=== PATIENT | female | born 1975 | race African-American/Black ===

== ENCOUNTER 2017-08-29 19:54 | Emergency (ER) | payer SELFPAY ==
[2017-08-29] MEDS ORDERED: Mag-Al 1200 mg/1200 mg/30 ML UDCUP ONE (20:21)
[2017-08-29] MEDS ORDERED: Lidocaine Viscous Sol 2% 15 ml UD Cup ONE (20:21)
--- NOTE | 2017-08-29 21:22 | RAD ---
RADIOGRAPH CHEST 1 VIEW: HISTORY: A 42-year-old female with chest pain. FINDINGS: There are no air space densities, pulmonary edema, pneumothorax, or cardiomegaly. The lateral costop hrenic angles are sharp. IMPRESSION: No acute cardiopulmonary findings. jn [] POS: [facility]
== END 2017-08-29 20:40 | disposition home or self-care (01) ==
LOC: ERS 19:54
DX: S00.03XA Contusion of scalp, initial encounter (principal); R07.89 Other chest pain; D64.9 Anemia, unspecified; F41.9 Anxiety disorder, unspecified; F32.9 Major depressive disorder, single episode, unspecified; W22.8XXA Striking against or struck by other objects, initial encounter
CPT/HCPCS: 71045; 93005

== ENCOUNTER 2020-11-26 16:00 | Observation (INO) | payer SELFPAY ==
[2020-11-26 16:54] LABS: #Eosinphils 0.1 thou/uL (0.0-0.7); #Monocytes 0.3 thou/uL (0.11-0.59); #Neutrophils 2.6 thou/uL (1.40-6.50); %Basophils 0.8 % (0.0-1.0); %Eosinophils 1.5 % (0.0-10.0); %Lymphocytes 39.6 % (21.0-51.0); %Monocytes 6.8 % (0.0-10.0); %Neutrophils 51.4 % (42.0-75.0); Hemoglobin 6.2 g/dL (12.0-16.0); Mean Corpuscular HGB CONC 31.4 g/dL (32.0-36.0); Mean Corpuscular Hemoglobin 21.6 pg (27.0-31.0); Mean Corpuscular Volume 68.7 fL (78.0-98.0); Mean Platelet Volume 11.3 fL (7.4-10.4); Platelet Count 206 thou/uL (130-400); RBC Distribution Width 20.6 % (11.5-14.5); Red Blood Cell (RBC) Count 2.87 mill/uL (4.20-5.40); White Blood Cell (WBC) Count 5.1 thou/uL (4.8-10.8)
[2020-11-26 17:13] LABS: Anisocytosis MODERATE=16-30 cells (100X) (0-5/hpf); Hypochromia SLIGHT = 6-15 cells (100X) (0-5/hpf); Large Platelets SLIGHT; MDiff Complete? YES; Microcytosis MODERATE=15-30 cells (100X) (0-5/hpf); Platelet Morphology Comment Appears Adequate; Polychromasia MODERATE = 3-4 cells (100X) (0-2/hpf)
[2020-11-26 20:43] LABS: Pregnancy Test - Urine (BHCG) Negative (Negative); Pregu Control Background? CLEAR/WHITE (CLR/WHITE); Pregu Control Bar Appear? YES (CONTROL BAR)
[2020-11-26 20:51] LABS: Bacteria/HPF None Seen HPF (None Seen); Bilirubin Negative (Negative); Blood, Urine 1+ (Negative); Clarity Clear (Clear); Glucose, Urine (Dipstick) Normal (Negative); Ketone, Urine Negative (Negative); Leukocyte Negative Leu/uL (Negative); Nitrite Negative (Negative); Protein, Urine (Dipstick) Negative (Neg-Trace); RBC/HPF 21-50 HPF (0-3); Specific Gravity, Urine 1.022 (1.002-1.036); Squamous Epithelial 0-3 HPF (0-3); Urobilinogen Normal mg/dL (Less than 2); WBC/HPF 0-3 HPF (0-3); pH, Urine 6.5 (5.0-9.0)
[2020-11-26] MEDS ORDERED: Ondansetron PF 4 MG/2 ML Vial IVP PRN (22:45)
[2020-11-26] MEDS ORDERED: Acetaminophen 325 MG TAB PO PRN (22:45)
[2020-11-26] MEDS ORDERED: Ondansetron ODT 4 MG TAB SL PRN (22:45)
[2020-11-26 23:33] VITALS: BMI 32.1
[2020-11-27 04:22] LABS: Hemoglobin 6.3 g/dL (12.0-16.0)
[2020-11-27] MEDS ORDERED: Docusate 100 MG CAP PO PRN (08:05)
[2020-11-27 11:49] LABS: Hemoglobin 7.9 g/dL (12.0-16.0); Platelet Count 189 thou/uL (130-400)
[2020-11-27 12:04] LABS: SARS-CoV-2 PCR by NAA Not Detected (NotDetected)
[2020-11-27 12:18] VITALS: BP 121/70; TEMP 97.9
[2020-11-27] MEDS ORDERED: Ferrous Sulfate 325 MG TAB PO SCH (17:00)
== END 2020-11-27 15:10 | disposition home or self-care (01) ==
LOC: ERS 16:00 → ONC 21:34
PROVIDERS: ADMIT Student in an Organized Health Care Education/Training Program; ATTEND Hospitalist
DX: N93.9 Abnormal uterine and vaginal bleeding, unspecified (principal); D25.9 Leiomyoma of uterus, unspecified; D62 Acute posthemorrhagic anemia; Z20.822 Contact with and (suspected) exposure to COVID-19; Z79.899 Other long term (current) drug therapy
CPT/HCPCS: 36415; 36430; 76856; 81003; 81015; 81025; 85014; 85018; 85025; 86850; 86900; 86901; G0378; P9016; U0003; U0005